=== PATIENT | male | born 1975 | race Caucasian/White ===

== ENCOUNTER 2021-04-10 16:18 | Observation (INO) ==
[2021-04-10 16:22] VITALS: BMI 32.8
--- NOTE | 2021-04-10 17:07 | DR.ABDMALE ---
HPI Time seen Time Seen by Provider: 04/10/21 17:07 PCP Primary Care Physician: YSABEL HPI comment HPI Comment: PATIENT IS 45YR OLD MALE IN ER WITH RLQ ABDOMINAL PAIN TIMES 3 DAYS. PAIN IS ASSOCIATED WITH NAUSEA AND VOMITING. PAIN IS RADIATES TO LOWER SATISH K. NO DYSURIA, DIARRHEA OR FEVER. WORSE TODAY. Complaint Chief Complaint Doctors Comments: RLQ ABDOMINAL PAIN TIMES 3 DAYS. Chief Complaint:: PT. C/O RLQ PAIN X 3 DAYS WITH WORSENING PAIN THIS MORNING. PT. ALSO C/O NAUSEA/VOMITING. COVID-19 Coronavirus risk:travel/contact w/high risk person: No Has patient experienced Coronavirus symptoms: No Reviewed Nurses Notes Review: Yes Source History provided by:: RLQ ABDOMINAL PAIN. Mode of arrival Mode of Arrival: Ambulatory Timing Onset of Chief Complaint: 04/07/21 Came on: Suddenly Duration Duration: Constant Duration: Days Location Location: RLQ Severity Severity: Moderate Quality Quality: Sharp Context Onset: Suddenly History of: None Modifying factors Worsening Factors: Movement Improving Factors: Lying Still Associated signs and symptoms Associated Signs and Symptoms: Nausea and Vomiting PMH PMH Past Medical History: No Past Surgical History: Yes Surgical History: Other Past Surgical History Comment: UMBILICAL HERNIA Family History History of Family Medical Conditions: No Social History Does patient currently use any type of tobacco product: Yes Have you used tobacco products in the last 12 months: Yes Type of Tobacco Use: Cigarettes Does any household member use tobacco: Yes Alcohol Use: None Do you use any recreational Drugs:: No Lives With: Spouse Lives Where: Home Infectious screening In the last 2 months have you had wt loss of >10#?: NO Have you had fever, night sweats or hemotysis?: No Have you traveled outside the country in the last 6 months?: No Isolation: Standard ROS Review of Systems Constitutional: No Symptoms Reported and See HPI; negative Fever, Weakness and Fatigue Eyes: No Symptoms Reported and See HPI ENTM: No Symptoms Reported and See HPI; negative Nose Discharge and Nose Congestion Respiratoy: No Symptoms Reported and See HPI; negative Moist Cough, Short of Breath and Wheezing Cardiovascular: No Symptoms Reported and See HPI; negative Chest Pain Gastrointestinal/Abdominal: See HPI, Abdominal Pain and Nausea; negative Diarrhea and Vomiting Genitourinary: No Symptoms Reported and See HPI; negative Dysuria, Frequency and Hematuria Neurological: No Symptoms Reported and See HPI; negative Headache, Weakness and Dizziness Musculoskeletal: No Symptoms Reported and See HPI; negative Back Pain and Muscle Pain Integumentary: No Symptoms Reported and See HPI; negative Change in Color, Rash and Juandice Hematologic/Lymphatic: No Symptoms Reported and See HPI; negative Easy Bruising Endocrine: No Symptoms Reported and See HPI; negative Increased Thirst and Increased Urine Psychiatric: No Symptoms Reported and See HPI All Other Systems: Reviewed and Negative PE Vital Signs Vital Signs: Temp Pulse Resp BP Pulse Ox 04/10/21 16:19 97.3 F L 87 20 141/96 97 General Limitations: No Limitations General Appearance: Alert and In No Apparent Distress Head Head Exam: Normal Inspection Eyes Eye exam: Normal Appearance; negative Scleral Icterus and Conjunctival Injection ENT ENT Exam: Normal Exam, Normal Oropharynx, Normal External Ear Exam and TM's Nor mal Bilaterally Neck Neck Exam: Normal Inspection and Trachea Midline; negative Tenderness Chest Chest Inspection: Normal Inspection and Symmetric Chest Wall Rise; negative Tenderness Respiratory Respiratory Exam: Normal Lung Sounds Bilat; negative Accessory Muscle Use, Chest Wall Tenderness and Respiratory Distress Respiratory Exam: Bilateral: Clear to Auscultation Cardiovascular Cardiovascular Exam: Regular Rate, Normal Rhythm and Normal Heart Sounds; negative Systolic Murmur and Diastolic Murmur Abdominal Exam Abdominal Exam: Normal Bowel Sounds, Soft and Tenderness Abdominal Tenderness: RLQ and Moderate Rectal Rectal Exam: Deferred Back Back Exam: Normal Inspection; negative (R) CVA Tenderness and (L) CVA Tenderness Extremeties Extremities Exam: Normal Inspection and Normal Capillary Refill Exam: Male: Deferred Neurologic Neurological Exam: Alert and Oriented X3; negative Motor Sensory Deficit Psychiatric Psychiatric Exam: Normal Affect and Normal Mood Skin Skin Exam: Warm, Dry, Intact and Normal Color MDM Differential Diagnosis Differential Diagnosis: Appendicitis, Bowel Obstruction, Cholcystitis, Cholelethiasis, Constipation, Diverticular disease, Gastritus/PUD, Inflammatory BD, Urinary tract infection and Urolithiasis COURSE Treatment Treatment: SEE ORDERS. NS 125CC/HR AND ANCEF 1GM . Consultation Consultation Comments: DISCUSSED PATIENT WITH DR. KINNEY. HE WILL ADMIT PATIENT. Education/Counseling Education/Counseling: Patient Educated On: Diagnosis ROR Labs Reviewed Laboratory Results Reviewed?: Yes Result Diagrams: 04/11/21 05:14 04/11/21 05:14 Laboratory: WBC 9.9 X10^3/uL (3.6-10.0) 04/10/21 17:20 RBC 5.33 X10^6/uL (4.7-6.0) 04/10/21 17:20 Hgb 16.0 g/dL (13.5-18.0) 04/10/21 17:20 Hct 45.9 % (42.0-54.0) 04/10/21 17:20 MCV 86.1 fL (80.0-100.0) 04/10/21 17:20 MCH 30.0 pg (27.0-34.0) 04/10/21 17:20 MCHC 34.9 g/dL (33.0-35.0) 04/10/21 17:20 RDW 13.1 % (11.6-16.5) 04/10/21 17:20 Plt Count 211 X10^3/uL (150.0-450.0) 04/10/21 17:20 MPV 8.6 fL (7.4-11.0) 04/10/21 17:20 Neut % (Auto) 72.9 % (42.0-75.0) 04/10/21 17:20 Lymph % (Auto) 15.2 % (21.0-51.0) L 04/10/21 17:20 [place] % (Auto) 5.5 % (0.0-13.0) 04/10/21 17:20 Eos % (Auto) 5.6 % (0.9-2.9) H 04/10/21 17:20 Baso % (Auto) 0.8 % (0.2-1.0) 04/10/21 17:20 Neut # (Auto) 7.2 x10^3/uL (2.2-4.8) H 04/10/21 17:20 Lymph # (Auto) 1.5 X10^3/uL (1.3-2.9) 04/10/21 17:20 [place] # (Auto) 0.5 x10^3/uL (0.3-0.8) 04/10/21 17:20 Eos # (Auto) 0.6 x10^3/uL (0.0-0.2) H 04/10/21 17:20 Baso # (Auto) 0.1 X10^3/uL (0.0-0.1) 04/10/21 17:20 Absolute Nucleated RBC 0.1 /100WBC 04/10/21 17:20 Sodium 138 mmol/L (136-145) 04/10/21 17:20 Corrected Sodium 138 mmol/L (136-145) 04/10/21 17:20 Potassium 5.1 mmol/L (3.5-5.1) 04/10/21 17:20 Chloride 104 mmol/L (98-107) 04/10/21 17:20 Carbon Dioxide 25.4 mmol/L (21-32) 04/10/21 17:20 BUN 14 mg/dL (7-18) 04/10/21 17:20 Creatinine 0.94 mg/dL (0.70-1.30) 04/10/21 17:20 Est GFR (MDRD) Af Amer > 60 (>60) 04/10/21 17:20 Est GFR (MDRD) Non-Af > 60 (>60) 04/10/21 17:20 Glucose 112 mg/dL (65-99) H 04/10/21 17:20 Calcium 9.4 mg/dL (8.5-10.1) 04/10/21 17:20 Corrected Calcium TNP 04/10/21 17:20 Total Bilirubin 0.50 mg/dL (0.2-1.0) 04/10/21 17:20 AST 42 Units/L (15-37) H 04/10/21 17:20 ALT 35 Units/L (12-78) 04/10/21 17:20 Alkaline Phosphatase 71 Units/L (46-116) 04/10/21 17:20 Total Protein 8.1 g/dL (6.4-8.2) 04/10/21 17:20 Albumin 4.0 g/dL (3.4-5.0) 04/10/21 17:20 Globulin 4.1 g/dL (2.5-4.5) 04/10/21 17:20 Albumin/Globulin Ratio 1.0 Ratio (1.1-2.1) L 04/10/21 17:20 Amylase 29 Units/L (25-115) 04/10/21 17:20 Lipase 102 Units/L (73-393) 04/10/21 17:20 Specimen Type Clean catch urine 04/10/21 18:29 Urine Color Yellow (YELLOW) 04/10/21 18:29 Urine Appearance Clear (CLEAR) 04/10/21 18: Urine pH 5.0 (5.0 - 8.0) 04/10/21 18: Ur Specific [place] 1.025 (1.000-1.030) 04/10/21 18:29 Urine Protein 1+ (NEGATIVE) 04/10/21 18: Urine Glucose (UA) Negative (NEGATIVE) 04/10/21 18: Urine Ketones 1+ (NEGATIVE) 04/10/21 18:29 Urine Occult Blood Negative (NEGATIVE) 04/10/21 18: Urine Nitrite Negative (NEGATIVE) 04/10/21 18: Urine Bilirubin Negative (NEGATIVE) 04/10/21 18: Urine Urobilinogen Normal (NORMAL) 04/10/21 18:29 Ur Leukocyte Esterase Negative (NEGATIVE) 04/10/21 18:29 Urine RBC None seen /HPF (0-3) 04/10/21 18: Urine WBC 0-2 /HPF (0-5) 04/10/21 18:29 Ur Squamous Epith Cells Few /HPF (NEGATIVE) 04/10/21 18:29 Urine Bacteria Trace /HPF (NEGATIVE) 04/10/21 18:29 Urine Mucus Few /HPF (NEGATIVE) 04/10/21 18:29 Ur Culture Indicated? No/not indicated 04/10/21 18:29 SARS CoV-2 RNA Rapid ION Negative (NEGATIVE) 04/10/21 19:05 XRAY XRAY Interpreted by: Radiologist (REPORT NOTED AND DISCUSSED WITH PATIENT.) and Self Opioid Opioid Risk Tool Age (Terry box if 16-45): Yes Total: 1 Total Score Risk Category: Low Risk Copyright: Abdiel GUERRERO predicting aberrant behaviors Diagnosis Discharge Problem: Abdominal pain, acute, right lower quadrant Acute appendicitis Qualifiers: Acute appendicitis type: other Qualified Code(s): K35.890 - Other acute appendicitis without perforation or gangrene
[2021-04-10 17:27] LABS: BASOPHILS # (AUTO) 0.1 X10^3/uL (0.0-0.1); BASOPHILS % (AUTO) 0.8 % (0.2-1.0); EOSINOPHILS # (AUTO) 0.6 x10^3/uL (0.0-0.2); EOSINOPHILS % (AUTO) 5.6 % (0.9-2.9); HEMATOCRIT 45.9 % (42.0-54.0); LYMPHOCYTES # (AUTO) 1.5 X10^3/uL (1.3-2.9); LYMPHOCYTES % (AUTO) 15.2 % (21.0-51.0); MEAN CORPUSCULAR HGB CONC 34.9 g/dL (33.0-35.0); MEAN CORPUSCULAR VOLUME 86.1 fL (80.0-100.0); MEAN PLATELET VOLUME 8.6 fL (7.4-11.0); MONOCYTES # (AUTO) 0.5 x10^3/uL (0.3-0.8); MONOCYTES % (AUTO) 5.5 % (0.0-13.0); NEUTROPHILS # (AUTO) 7.2 x10^3/uL (2.2-4.8); NEUTROPHILS % (AUTO) 72.9 % (42.0-75.0); RED BLOOD COUNT 5.33 X10^6/uL (4.7-6.0); RED CELL DISTRIBUTION WIDTH 13.1 % (11.6-16.5); WHITE BLOOD COUNT 9.9 X10^3/uL (3.6-10.0)
[2021-04-10 17:42] LABS: BLOOD UREA NITROGEN 14 mg/dL (7-18); CALCIUM 9.4 mg/dL (8.5-10.1); CARBON DIOXIDE 25.4 mmol/L (21-32); CHLORIDE 104 mmol/L (98-107); COR NA(FOR HYPERGLY) 138 mmol/L (136-145); CREATININE 0.94 mg/dL (0.70-1.30); SODIUM 138 mmol/L (136-145); eGFR NON BLACK RACES > 60 (>60)
[2021-04-10 17:55] LABS: ALANINE AMINOTRANSFERASE 35 Units/L (12-78); ALKALINE PHOSPHATASE 71 Units/L (46-116); AMYLASE 29 Units/L (25-115); LIPASE 102 Units/L (73-393); TOTAL PROTEIN 8.1 g/dL (6.4-8.2)
[2021-04-10 18:39] LABS: ASPARTATE AMINO TRANSFERASE 42 Units/L (15-37)
[2021-04-10] MEDS ORDERED: NS 100 ML IV 100 ML ONE (19:01)
[2021-04-10 19:03] LABS: BILIRUBIN,URINE NEGATIVE (NEGATIVE); BLOOD/HEMOGLOBIN,URINE NEGATIVE (NEGATIVE); GLUCOSE, URINE NEGATIVE (NEGATIVE); KETONES,URINE 1+ (NEGATIVE); LEUKOCYTE ESTERASE ,URINE NEGATIVE (NEGATIVE); NITRITES,URINE NEGATIVE (NEGATIVE); PROTEIN,URINE 1+ (NEGATIVE); UROBILINOGEN,URINE NORMAL (NORMAL)
[2021-04-10 19:21] LABS: APPEARANCE,URINE CLEAR (CLEAR); BACTERIA,URINE TRACE /HPF (NEGATIVE); COLOR,URINE YELLOW (YELLOW); RBC,URINE NONE SEEN /HPF (0-3); SQUAMOUS EPITHELIAL CELL,UR FEW /HPF (NEGATIVE)
--- NOTE | 2021-04-10 19:42 | CT ---
HISTORYPT. C/O RLQ PAIN X 3 DAYS WITH WORSENING PAIN THIS MORNING. PT. ALSO C/O NAUSEA/VOMITING.STUDYABDOMEN/PELVIS WITH CONCOMPARISONNoneTECHNIQUEMultiple axial images of the abdomen and pelvis were obtained from the lung bases to the pubic symphysis after the administration of IV contrast. Dose reduction techniques including Automated Exposure Control (AEC) and adjustment of mA and kV were utilized.FINDINGSThe visualized portions of the lung bases are unremarkable . The liver, spleen, pancreas, kidneys, and adrenal glands are unremarkable in their CT appearance. The gallbladder is unremarkable in its CT appearance . No significant mesenteric lymphadenopathy or stranding can be observed. No free fluid or free air is seen within the abdomen. No bowel wall thickening or bowel dilatation is present. The colon is unremarkable. Specifically, there is no diverticulosis noted within the sigmoid colon. The appendix appears dilated measuring up to 12 mm in width with some periappendiceal stranding. These findings are most compatible with acute appendicitis. The urinary bladder is grossly unremarkable. The bony structures are grossly intact.IMPRESSIONAcute appendicitis as above.Electronically signed by: DEVIN SILVA (Apr 10, 2021 19:41:44)
[2021-04-10] MEDS ORDERED: MORPHINE SULFATE INJ 2 MG INJ IVP PRN (21:14)
[2021-04-10] MEDS ORDERED: ZOFRAN INJ 4 MG VIAL IVP PRN (21:14)
[2021-04-10] MEDS: NICOTINE PATCH TD SCH (21:59)
[2021-04-10] MEDS ORDERED: ANCEF VIAL 1 GRAM IVP SCH (22:00)
[2021-04-10] MEDS ORDERED: NS 1,000 ML IV 1,000 ML IV SCH (22:00)
[2021-04-10] MEDS ORDERED: DILAUDID INJ IVP PRN (22:33)
[2021-04-10] MEDS: D5 1/2 NS 1,000 ML 1,000 ML IV SCH (23:03)
[2021-04-10] MEDS: ZOSYN VIAL 3.375 GRAMS 3.375 G in NS 100 ML IV + SPIKE MINIBAG* 100 ML IV SCH (23:03)
[2021-04-11] MEDS: ZOSYN VIAL 3.375 GRAMS 3.375 G in NS 100 ML IV + SPIKE MINIBAG* 100 ML IV SCH ×3 (05:07→21:12)
[2021-04-11 06:05] LABS: BASOPHILS % (AUTO) 0.6 % (0.2-1.0); EOSINOPHILS # (AUTO) 0.5 x10^3/uL (0.0-0.2); EOSINOPHILS % (AUTO) 6.8 % (0.9-2.9); HEMATOCRIT 43.4 % (42.0-54.0); HEMOGLOBIN 15.2 g/dL (13.5-18.0); LYMPHOCYTES # (AUTO) 1.3 X10^3/uL (1.3-2.9); LYMPHOCYTES % (AUTO) 16.9 % (21.0-51.0); MEAN CORPUSCULAR HEMOGLOBIN 30.2 pg (27.0-34.0); MEAN CORPUSCULAR VOLUME 86.4 fL (80.0-100.0); MEAN PLATELET VOLUME 8.9 fL (7.4-11.0); MONOCYTES # (AUTO) 0.5 x10^3/uL (0.3-0.8); MONOCYTES % (AUTO) 7.1 % (0.0-13.0); NEUTROPHILS # (AUTO) 5.2 x10^3/uL (2.2-4.8); NEUTROPHILS % (AUTO) 68.6 % (42.0-75.0); RED BLOOD COUNT 5.02 X10^6/uL (4.7-6.0); RED CELL DISTRIBUTION WIDTH 13.1 % (11.6-16.5); WHITE BLOOD COUNT 7.6 X10^3/uL (3.6-10.0)
[2021-04-11 06:27] LABS: BLOOD UREA NITROGEN 13 mg/dL (7-18); CARBON DIOXIDE 27.7 mmol/L (21-32); CHLORIDE 106 mmol/L (98-107); COR NA(FOR HYPERGLY) 142 mmol/L (136-145); CREATININE 1.05 mg/dL (0.70-1.30); SODIUM 142 mmol/L (136-145); eGFR NON BLACK RACES > 60 (>60)
[2021-04-11] MEDS: D5 1/2 NS 1,000 ML 1,000 ML IV SCH ×3 (07:19→22:42)
[2021-04-11 07:20] LABS: ALANINE AMINOTRANSFERASE 34 Units/L (12-78); ALBUMIN 3.5 g/dL (3.4-5.0); ALKALINE PHOSPHATASE 64 Units/L (46-116); ASPARTATE AMINO TRANSFERASE 14 Units/L (15-37)
[2021-04-11] MEDS: NICOTINE PATCH TD SCH ×2 (09:42→20:32)
[2021-04-11] MEDS ORDERED: ANCEF VIAL 1 GRAM ONE (10:01)
[2021-04-11] MEDS ORDERED: LR 1,000 ML IV 1,000 ML IV ONE (10:02)
[2021-04-11] MEDS ORDERED: NS 100 ML IV 100 ML ONE (10:02)
[2021-04-11] MEDS ORDERED: DUONEB 0.5 MG/3 MG (3 mL) NEB ONE (10:06)
[2021-04-11] MEDS ORDERED: KETAMINE HCL ONE (10:11)
[2021-04-11] MEDS ORDERED: FENTANYL VIAL INJ 100 mcg ONE (10:12)
[2021-04-11] MEDS ORDERED: MAGNESIUM SULFATE 1 GRAM/100 mL PREMIX 1 G/100 ML BAG IV ONE (10:12)
[2021-04-11] MEDS ORDERED: OFIRMEV IV 1000 MG VIAL 1,000 MG/100 ML VIAL IV ONE (10:12)
[2021-04-11] MEDS ORDERED: QUELICIN (OR ANECTINE) ONE (10:35)
[2021-04-11] MEDS ORDERED: DIPRIVAN VIAL ONE (10:35)
[2021-04-11] MEDS ORDERED: XYLOCAINE 2 % (PLAIN) ONE (10:35)
[2021-04-11] MEDS ORDERED: VERSED ONE (10:35)
[2021-04-11] MEDS ORDERED: ZOFRAN INJ 4 MG VIAL ONE (10:35)
[2021-04-11] MEDS ORDERED: ZEMURON 50 MG VIAL ONE (10:35)
[2021-04-11] MEDS ORDERED: BRIDION ONE (10:35)
[2021-04-11] MEDS ORDERED: TORADOL 30 MG VIAL ONE (10:35)
[2021-04-11] MEDS ORDERED: DECADRON INJ ONE (10:35)
[2021-04-11] MEDS ORDERED: BACTROBAN TOPICAL OINT ONE (11:04)
[2021-04-11] MEDS ORDERED: BETADINE SOLN ONE (11:17)
[2021-04-11] MEDS ORDERED: DILAUDID INJ ONE (11:28)
[2021-04-11] MEDS: DILAUDID INJ IVP PRN ×4 (11:32→11:52)
[2021-04-11] MEDS ORDERED: ZOFRAN INJ 4 MG VIAL IVP PRN (11:39)
[2021-04-11] MEDS ORDERED: PHENERGAN INJ 25 MG IM PRN (11:39)
[2021-04-11] MEDS ORDERED: BARHEMSYS INJ IVP PRN (11:39)
[2021-04-11] MEDS ORDERED: REGLAN INJ 10 MG VIAL IVP PRN (11:39)
[2021-04-11] MEDS ORDERED: BENADRYL INJ 50 MG VIAL IVP PRN (11:39)
[2021-04-11] MEDS ORDERED: MILK OF MAGNESIA PO PRN (19:42)
[2021-04-11] MEDS ORDERED: MAALOX or MYLANTA PO PRN (20:16)
[2021-04-12] MEDS: D5 1/2 NS 1,000 ML 1,000 ML IV SCH ×2 (03:09→07:16)
[2021-04-12] MEDS: ZOSYN VIAL 3.375 GRAMS 3.375 G in NS 100 ML IV + SPIKE MINIBAG* 100 ML IV SCH (05:31)
[2021-04-12 06:36] LABS: BASOPHILS # (AUTO) 0.1 X10^3/uL (0.0-0.1); BASOPHILS % (AUTO) 0.8 % (0.2-1.0); EOSINOPHILS # (AUTO) 0.1 x10^3/uL (0.0-0.2); EOSINOPHILS % (AUTO) 1.2 % (0.9-2.9); HEMATOCRIT 41.9 % (42.0-54.0); HEMOGLOBIN 14.7 g/dL (13.5-18.0); LYMPHOCYTES % (AUTO) 9.8 % (21.0-51.0); MEAN CORPUSCULAR HEMOGLOBIN 30.1 pg (27.0-34.0); MEAN PLATELET VOLUME 8.6 fL (7.4-11.0); MONOCYTES # (AUTO) 0.6 x10^3/uL (0.3-0.8); MONOCYTES % (AUTO) 5.5 % (0.0-13.0); NEUTROPHILS # (AUTO) 8.6 x10^3/uL (2.2-4.8); NEUTROPHILS % (AUTO) 82.7 % (42.0-75.0); RED BLOOD COUNT 4.87 X10^6/uL (4.7-6.0); RED CELL DISTRIBUTION WIDTH 13.1 % (11.6-16.5); WHITE BLOOD COUNT 10.4 X10^3/uL (3.6-10.0)
[2021-04-12 07:09] LABS: ALANINE AMINOTRANSFERASE 29 Units/L (12-78); ALBUMIN 3.6 g/dL (3.4-5.0); ALKALINE PHOSPHATASE 60 Units/L (46-116); ASPARTATE AMINO TRANSFERASE 17 Units/L (15-37); BLOOD UREA NITROGEN 9 mg/dL (7-18); CALCIUM 8.7 mg/dL (8.5-10.1); CARBON DIOXIDE 27.2 mmol/L (21-32); CHLORIDE 107 mmol/L (98-107); CREATININE 0.96 mg/dL (0.70-1.30); SODIUM 143 mmol/L (136-145); eGFR NON BLACK RACES > 60 (>60)
[2021-04-12 07:47] VITALS: BP 167/98
[2021-04-12] MEDS: NICOTINE PATCH TD SCH (08:28)
== END 2021-04-12 10:30 | disposition home or self-care (01) ==
LOC: MED/SURG 16:18 → ER 16:18 → MED/SURG 20:55
PROVIDERS: ADMIT Surgery; ATTEND Surgery
PROC: APPYLAP (ICD-10-PCS; 2021-04-11 09:15)